=== PATIENT | male | born 2005 | race Caucasian/White ===

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

== ENCOUNTER → 2024-01-21 11:09 | Outpatient (BNVA) | payer SELFPAY | PROVIDERS: PCP Pediatrics | DX: R76.11 Nonspecific reaction to tuberculin skin test without active tuberculosis (principal) ==

== ENCOUNTER 2024-07-13 12:38 | Outpatient (REF) | payer MEDICAID, SELFPAY ==
[2024-07-13 13:34] LABS: MANUAL DIFF FLAG NO
[2024-07-13 13:44] LABS: Basophils Percent Auto 0.4 % (0-2); Eosinophils Percent Auto 0.8 % (0-4); Hematocrit 46.6 % (42.0-52.0); Hemoglobin 15.6 g/dl (14.0-18.0); Imm Gran Abs Auto 0.01 X10*3/uL (0.00-0.03); Imm Gran Pct Auto 0.2 % (0.0-0.4); Lymphocytes Absolute Auto 1.2 X10*3/uL (1.2-4.9); Mean Corpuscular HGB Conc 33.5 g/dl (31.0-36.0); Mean Corpuscular Hemoglobin 28.8 pg (27.0-33.0); Mean Corpuscular Volume 86.1 fL (80.0-98.0); Mean Platelet Volume 9.4 fL (9.4-12.4); Monocytes Absolute Auto 0.5 X10*3/uL (0.1-1.2); Monocytes Percent Auto 10.2 % (2-11); Neutrophils Absolute Auto 3.2 x10*3/uL (2.0-8.3); Neutrophils Percent Auto 64.4 % (45-73); Platelet Count 296 X10*3/uL (160-400); Red Blood Count 5.41 X10*6/uL (4.60-5.80); Red Cell Distribution Width 12.3 % (11.0-16.0)
[2024-07-13 14:03] LABS: Alanine Aminotransferase 25 U/L (0-40); Albumin Level 4.3 g/dL (3.5-5.0); Alkaline Phosphatase 101 U/L (39-117); Anion Gap 12 (12-20); Aspartate Amino Transferase 17 U/L (5-37); Bilirubin Total 0.6 mg/dL (0.0-1.0); Blood Urea Nitrogen 12 mg/dL (9-16); Carbon Dioxide 28 mmol/L (22-29); Chloride 103 mmol/L (96-108); Cholesterol 129 mg/dL (<200); Estimated Glomerular Filt Rate > 60; Glucose Random 97 mg/dL (60-115); HDL Cholesterol 27 mg/dL (>40); LDL Cholesterol Calculated 85 mg/dL (<100); Potassium 4.2 mmol/L (3.3-5.1); Sodium 139 mmol/L (135-145); Total Protein 8.6 g/dL (6.5-8.0); Triglycerides 87 mg/dL (<150)
[2024-07-14 08:01] LABS: ~HepC Num1 0.69 S/CO (0.00-0.79); ~Hepatitis C Antibody Nonreactive (Nonreactive)
[2024-07-14 13:13] LABS: RPR Rapid Plasma Reagin REACTIVE (NON-REACTIVE)
[2024-07-16 17:04] LABS: TS Negative Control Passed; TS Panel A 0; TS Panel B 0; TS Positive Control Passed; TSpotTB Negative (Negative)
[2024-07-17 17:49] LABS: HIV RNA PCR Qn Copies Not Detected Copies/mL; HIV RNA PCR Qn Log Copies Not Detected Log cps/mL
== END 2024-07-13 12:39 | disposition home or self-care (01) ==
LOC: HO.HHCL 12:38
PROVIDERS: Pediatrics; Visit Provider Nurse Practitioner Family
DX: Z00.00 Encounter for general adult medical examination without abnormal findings (principal); Z11.1 Encounter for screening for respiratory tuberculosis; Z11.4 Encounter for screening for human immunodeficiency virus [HIV]; Z13.6 Encounter for screening for cardiovascular disorders
CPT/HCPCS: 36415; 80053; 80061; 85025; 86481; 86592; 86593; 86803; 87536; 87900

== ENCOUNTER 2024-07-14 10:15 | Outpatient (REF) | payer MEDICAID, SELFPAY ==
[2024-07-14 11:48] LABS: MANUAL DIFF FLAG NO
[2024-07-14 11:53] LABS: Basophils Percent Auto 0.3 % (0-2); Eosinophils Percent Auto 0.6 % (0-4); Hematocrit 43.4 % (42.0-52.0); Hemoglobin 14.6 g/dl (14.0-18.0); Imm Gran Abs Auto 0.02 X10*3/uL (0.00-0.03); Imm Gran Pct Auto 0.3 % (0.0-0.4); Lymphocytes Absolute Auto 1.1 X10*3/uL (1.2-4.9); Lymphocytes Percent Auto 14.9 % (20-40); Mean Corpuscular HGB Conc 33.6 g/dl (31.0-36.0); Mean Corpuscular Volume 86.1 fL (80.0-98.0); Mean Platelet Volume 9.2 fL (9.4-12.4); Monocytes Absolute Auto 0.5 X10*3/uL (0.1-1.2); Monocytes Percent Auto 6.7 % (2-11); Neutrophils Absolute Auto 5.5 x10*3/uL (2.0-8.3); Neutrophils Percent Auto 77.2 % (45-73); Platelet Count 280 X10*3/uL (160-400); Red Blood Count 5.04 X10*6/uL (4.60-5.80); Red Cell Distribution Width 12.2 % (11.0-16.0); White Blood Count 7.1 X10*3/uL (4.8-10.8)
[2024-07-14 12:58] LABS: HIV AB/AG Nonreactive (Nonreactive); HIV Num 1 0.12 S/CO (0.00-0.99)
[2024-07-14 12:59] LABS: Syphilis Screen Reactive (Nonreactive)
[2024-07-17 09:13] LABS: EBV-NA IgG Index >600.00 U/mL; EBV-VCA IgG Ab >750.00 U/mL; EBV-VCA IgM Ab <36.00 U/mL
[2024-07-18 09:37] LABS: T.Pallidum Particle Agg Test Reactive (Nonreactive)
[2024-07-21 06:58] LABS: C. Trachomatis RNA TMA, Throat NOT DETECTED; N. gonorrhoeae RNA TMA, Throat NOT DETECTED
== END 2024-07-14 10:16 | disposition home or self-care (01) ==
LOC: HO.HHCL 10:15
PROVIDERS: Visit Provider Family Medicine
DX: R59.0 Localized enlarged lymph nodes (principal)
CPT/HCPCS: 36415; 85025; 86592; 86611; 86664; 86665; 86780; 87389; 87491; 87591

== ENCOUNTER 2024-08-02 16:41 | Outpatient (REF) | payer MEDICAID, SELFPAY ==
[2024-08-03 05:43] LABS: CT PCR NOT DETECTED (Not Detect.); NG PCR NOT DETECTED (Not Detect.)
[2024-08-07 04:42] LABS: N. gonorrhoeae RNA TMA, Throat NOT DETECTED
== END 2024-08-02 16:42 | disposition home or self-care (01) ==
LOC: HO.HHCLNP 16:41
PROVIDERS: Visit Provider Pediatrics
DX: Z00.00 Encounter for general adult medical examination without abnormal findings (principal); Z11.3 Encounter for screening for infections with a predominantly sexual mode of transmission
CPT/HCPCS: 36415; 87491; 87591

== ENCOUNTER 2024-11-08 12:01 | Outpatient (REF) | payer MEDICAID, SELFPAY ==
--- OUTSIDE RECORDS SUMMARY | 2024-11-08 12:04 | XMS_ITS ---
Author Organization [facility] Address [address] [place] [phone] Care Team Providers Care Product Design Manager Name Role Phone CINTIA IWONA Unavailable [phone] Allergies Allergen (clinical drug ingredient) Drug/Non Drug Allergy documented on EMR Reaction Allergy Type Onset Date Status Cat dander cats (uncoded) Unknown Allergy Acti ve REASON FOR VISIT Counseling/Testing Social History Sex Assigned At : Social History Observation Description Sex Assigned At Male Vital Signs Blood pressure systolic 142 mm Hg 10/01/20 24 Blood pressure diastolic 74 mm Hg 024 Height 5'9 in 10/01/2024 Weight 130 lbs 10/01/2024 BMI 19.2 kg/m2 10/01/2024 Encounters Encounter Location Date Provider Diagnosis [address] [id number] 10/01/2024 IWONA CHAMBERLAIN Encounter for scre ening for infections with a predominantly sexual mode of transmission Z11.3 ; Counseling, unspecified Z71.9 and Other problems related to lifestyle Z72.89 Assessments Encounter Date Diagnosis (ICD Code) Assessment Notes Treatment Notes Treatment Clinical Notes Section Notes 10/01/2024 Encounter for screening for infections with a predominantly sexual mode of transmission (ICD-10 - Z11.3) Long discussion regarding HSV concerns, HSV screening options and limitations of screening. Clt has opted to defer screening today. From description and photos I don't have high suspicion for HSV. Advised clt that if any symptoms return that they are concerned about possibly being HSV return with active symptoms for a PCR swab. Clt in agreement with plan Spent 15 minutes doing the following: Chart Prep Obtaining/rev iewing history Performing medically necessary exam Counseling/Co ordination of Care Documenting the visit Educating the patient New Patient: 29929 15 Minutes 10/01/2024 Counseling, unspecified (ICD-10 - Z71.9) Spent 15 minutes doing the following: Chart Prep Obtaining/rev iewing history Performing medically necessary exam Counseling/Co ordination of Care Documenting the visit Educating the patient New Patient: 24050 15 Minutes 10/01/2024 Other problems related to lifestyle (ICD-10 - Z72.89) Spent 15 minutes doing the following: Chart Prep Obtaining/rev iewing history Performing medically necessary exam Counseling/Co ordination of Care Documenting the visit Educating the patient New Patient: 16276 15 Minutes Plan Of Treatment Treatment Notes Assessment Notes Encounter for screening for infections with a predominantly sexual mode of transmission Long discussion regarding HSV concerns, HSV screening options and limitations of screening. Clt has opted to defer screening today. From description and photos I don't have high suspicion for HSV. Advised clt that if any symptoms return that they are concerned about possibly being HSV return with active symptoms for a PCR swab. Clt in agreement with plan Next Appt Details Follow Up: prn, Reason: Progress Notes * Angel RANGEL:0 2005 (19 yo M)Acc No.[id number]:10/01/2024 Progress Notes Patient:?Clint RANGEL Provider:ANN CHAMBERLAIN :2005???Age:19 Y???Sex:Male Emanuel e:10/01/2024 Address:[address] [place], [place] [id number] Subjective: * Chief Complaints: * ???Counseling/Testing * HPI: ???Visit Narrative:? Clt had a bump on the inner side of the lip about 2-3 weeks ago. Clt popped it and got another bump. Never had an open sore. Clt reports they sometimes bite their lip. Wondering if they should get HSV screening. No known exposures. Had other STI screening earlier this week and has another fu in October. ?Reason for the visit:?hsv testing?.?Current form of control:?condoms sometimes?.?Presenting Symptoms:?had bump on lip?.?Last date of UPI:?05/01.?Other Notes for the Clinician:?clt was seen in [facility], and got tested. clt was told to come here for hsv testing. clt tested postive for rpr and got their tx on the end of june. clt states they got one dose but went back for a second one just in case?.? * ROS:?General/Constitutional:?Comments?See HPI for details.? * Medical History:? * Surgical History:?Denies Pas t Surgical History * Hospitalization/Major Diagno stic Procedure:?Denies Past Hospitalization * Family History:?No Family Hi story documented..? * Social History:?Food Access:?Food Access?The Client's current access to food is?Secure Food Access ???Housing:?Housing?The client's current living situation is:?stable housing ???Reproductive Life Plan:?Reproductive Life Plan?Do you want to have children??Not sure ???Sexual History:?Sexual History?Sexual History Reviewed:?Partners, Practices, Protection/Past STIs, Prevention of ?Currently sexually active??Yes ?Sexually active with:?Men ?Number of male partners?1 ?Your sexual activities include:?anal intercourse, oral intercourse ?Date of last unprotected intercourse:?05/01/2024 ?Number of partners in past 3 months:?2 ?Number of partners in past year:?5 ???HIV Risk Assessment:?Additional Questions?Is an HIV Risk Assessment being conducted??Yes ?Have you been tested for HIV before??Yes ???Relationships:?Relationships?Has the client experienced any of the following:?Client has never experienced harmful relationships ???Human Trafficking:?Human Trafficking?Experienced:?No ???Tobacco Use:?Tobacco Use?Do you/have you used tobacco??No ?Tobacco Smoking Status?Never smoker ???Drugs/Alcohol:?Drug/Alcohol Use?Do you or have you used drugs??No ?Do you or have you used alcohol??Yes, currently ???Counseling Provided:?Counseling Provided?Please indicate the length of time, in minutes, that counseling was provided.?8 ?Counseling Was Provided By:?giselle * Medications:?None * Allergies:?cole[Allergies Verified] Objective: * Vitals:?BP:142/74mm Hg, Ht: 5'9 , Wt:130lbs, BMI:19.2Index, Ht-cm: 175.26, Wt- k.97. * Examination: ???General Examination: ?GENERAL APPEARANCE:?in no acute distress.?PSYCH:? alert, oriented.? Assessment: * Assessment: 1.?Encounter for screening f or infections with a predominantly sexual mode of transmission - Z11.3 (Primary)???2.?Counseling, unspecified - Z71.9???3.?Other problems related to lifestyle - Z72.89??? Spent 15 minutes doing the f ollowing: Chart Prep Obtaining/reviewing history Performing medically necessary exam Counseling/Coordination of Care Documenting the visit Educating the patient New Patient: 06483 15 Minutes Plan: * Treatment: * Procedure Codes:? * Follow Up:?prn * Billing Information: * Visit Code:? 59808 New-Straightforward (IN USE). * Procedure Codes:? * Sign off status: Completed true * Provider:ANN CHAMBERLAIN Date:?10/01/2024 Generated for Yao uriostegui/Mckenna/Araitting on:?11/08/2024 08:52 AM EST History and Physical Notes * HPI (History of Present Illness) Category Sub-Category Detail Notes Category Not es Visit Narrative Reason for the visit: hsv testing Current form of control: condoms s ometimes Presenting Symptoms: had bump on lip Other Notes for the Clinician: clt was s een in [facility], and got tested. clt was told to come here for hsv testing. clt tested postive for rpr and got their tx on the end of june. clt states they got one dose but went back for a second one just in case Last date of UPI: 05/01 Examination Category Sub-Category Detail Notes Category Not es General Examination GENERAL APPEARANCE: in no acute di stress PSYCH: alert, oriented
--- OUTSIDE RECORDS SUMMARY | 2024-11-08 12:04 | XMS_ITS | Patient Health Record ---
Author Organization [facility] Address [address] [place] [id number] Care Team Providers Care Teacher Aide Clerical Name Role Phone IWONA CHAMBERLAIN Unavailable [phone] Allergies Allergen (clinical drug ingredient) Drug/Non Drug Allergy documented on EMR Reaction Allergy Type Onset Date Status Cat dander cats (uncoded) Unknown Allergy Acti ve Reason For Referral No Information Social History Sex Assigned At : Social History Observation Description Sex Assigned At Male Vital Signs Blood pressure diastolic 74 mm Hg 10/01/2024 Height 5'9 in 10/01/2024 Blood pressure systolic 142 mm Hg 10/01/2024 Weight 130 lbs 10/01/2024 BMI 19.2 kg/m2 10/01/2024 Encounters Encounter Location Date Provider Diagnosis [address] [id number] 10/01/2024 IWONA CHAMBERLAIN Encounter for scre ening [...] the visit Educating the patient New Patient: 05454 15 Minutes 10/01/2024 Counseling, unspecified (ICD-10 - Z71.9) Spent 15 minutes doing the following: Chart Prep Obtaining/rev iewing history Performing medically necessary exam Counseling/Co ordination of Care Documenting the visit Educating the patient New Patient: 70595 15 Minutes 10/01/2024 Other problems related to lifestyle (ICD-10 - Z72.89) Spent 15 minutes doing the following: Chart Prep Obtaining/rev iewing history Performing medically necessary exam Counseling/Co ordination of Care Documenting the visit Educating the patient New Patient: 88819 15 Minutes Plan Of Treatment No Information Insurance Providers Payer Name Payer Address Payer Phone Subscriber Number Group Number Insured Name Patient Relationship to Insured Coverage Start Date Coverage End Date [place] ATT CLAIMS [address] [place] [id number] Duc Rangel Self - patient is the insured Medical (General) History Medical History History ICD Code syphilis, 06/2024 asthma
[2024-11-08 14:30] LABS: Syphilis Screen Reactive (Nonreactive)
[2024-11-13 07:18] LABS: C. Trachomatis RNA TMA, Throat NOT DETECTED; N. gonorrhoeae RNA TMA, Throat NOT DETECTED
[2024-11-14 13:31] LABS: RPR Quantitative Reactive 1:4 (Nonreactive); T.Pallidum Particle Agg Test Reactive (Nonreactive)
== END 2024-11-08 12:02 | disposition home or self-care (01) ==
LOC: HO.HHCL 12:01
PROVIDERS: Visit Provider Family Medicine
DX: Z11.3 Encounter for screening for infections with a predominantly sexual mode of transmission (principal)
CPT/HCPCS: 36415; 86592; 86780; 87491; 87591

== ENCOUNTER 2025-01-25 16:32 | Outpatient (REF) | payer MEDICAID, SELFPAY ==
--- OUTSIDE RECORDS SUMMARY | 2025-01-25 20:16 | XMS_ITS | Encounter Summary ---
Author Organization [employer] Address [address] [place] [address] [address] [place] [address] Care Team Providers Care Nursing Teacher Name Role Phone Beckie Prakash MD Primary Care Provider [phone] Encounter Details Date Type Department Care Team ([facility] st Contact Info) Description 01/25/2025 Telephone [facility] MED[facility]INE [address] [place] [address] Beckie Prakash MD [address] [place] [address] Social History Tobacco Use Types Packs/Day Years Used Date Smoking Tobacco: Never Passive Smoke Exposure: Never Smokeless Tobacco: Never Comments:vape Alcohol Use Standard Drinks/Week Comments Yes 0 (1 standard drink = 0.6 oz pur e alcohol) social Depression Answer Date Recorded Patient Health Questionnaire-9 Score 5 06/07/2024 Patient Health Questionnaire-9 Score 5 06/07/2024 Last PHQ-9: Questionnaire Data Not on file 0 06/07/2024 Housing Stability Answer Date Recorded What is your housing situation today? I have layla yeh 05/31/[address] you li ve. Do you have problems with any of the following? None of the above 05/31/2024 Food Insecurity Answer Date Recorded Within the past 12 months, y ou worried that your food would run out before you got money to buy more: Never True 05/31/2024 Within the past 12 months,th e food you bought just didn't last and you didn't have enough money to get more: Never True 06/2024 Transportation Answer Date Recorded In the past 12 months, has l ack of transportation kept you from medical appts, meetings, work or from getting things needed for daily living? No 09/29/2023 Utilities Answer Date Recorded In the past 12 months, has t he electric, gas, oil or water company threatened to shut off services in your home? No 09/29/2023 Depression Answer Date Recorded Patient Health Questionnaire-2 Score 3 06/07/2024 Internet Access Answer Date Recorded Internet Access Q1 Yes 07/26/2024 Internet Access Q2 Not on file 07/26/2024 Sex and Gender Information Value Date Recorded Sex Assigned at Male 09/23/2022 10:20 AM EDT Legal Sex Male 10:20 AM EDT Gender Identity Male 09/23/2022 10:20 AM EDT Sexual Orientation Straight 09/23/2022 10 :20 AM EDT documented as of this encounter Miscellaneous Notes * Telephone Encounter - Darcie Corey RN - 01/25/2025 9:43 AM EST Called pt. He states that he has been having a sore throat x 2 days. No fever. Pt. States he lookedin his throat and he see's an ulcer. Pt. Has not taken anything for pain but, has been doing H202 washes in throat with no relief. Pt. Stating he had some testing done yesterday he states in the back parking lot at [facility] but, I do not see any testing orders or results. Could possibly be from CRS? Protocol Used: Sore Throat (Adult) Protocol-Based Disposition: See in Office or Video Visit Today-at 215pm on Green team with Dr. Handy. Video visit not offered Positive Triage Questions: * Severe sore throat pain * Patient wants to be seen * Sore throat is main symptom and persists > 48 hours * All higher-acuity triage questions were negative Care Advice Discussed: * Sore Throat * Soft Diet * Drink Plenty of Liquids * Pain and Fever Medicines * Expected Course documented in this encounter Plan of Treatment Upcoming Encounters Date Type Department Care Team (Late st Contact Info) Description 02/28/2025 11:30 AM EDT Office Visit [facility] MEDICINE [address] [place] [id number] Beckie Prakash MD [address] [place] [phone] documented as of this encounter Visit Diagnoses Not on filedocumented in this encounter Additional Health Concerns Assessment Noted Time PHQ-9 Depression Total Score: 5 06/07/20 24 10:25 AM EDT documented as of this encounter Care Teams Nursing Teacher Relationship Specialty Start Date End Date Beckie Prakash MD [address] [place] [address] PCP - General Family Medicine 07/20/24 documented as of this encounter
--- OUTSIDE RECORDS SUMMARY | 2025-01-25 20:16 | XMS_ITS ---
Author Organization [facility] Address [address] [place] [phone] Care Team Providers Care Supervisor Felting Name Role Phone CINTIA IWONA Unavailable [phone] Allergies Allergen (clinical drug ingredient) Drug/Non Drug [...] 10/01/2024 Encounters Encounter Location Date Provider Diagnosis [address] [id number] 10/01/2024 IWONA CHAMBERLAIN Encounter for scre ening [...] the visit Educating the patient New Patient: 14735 15 Minutes 10/01/2024 Counseling, unspecified (ICD-10 - Z71.9) Spent 15 minutes doing the following: Chart Prep Obtaining/rev iewing history Performing medically necessary exam Counseling/Co ordination of Care Documenting the visit Educating the patient New Patient: 18165 15 Minutes 10/01/2024 Other problems related to lifestyle (ICD-10 - Z72.89) Spent 15 minutes doing the following: Chart Prep Obtaining/rev iewing history Performing medically necessary exam Counseling/Co ordination of Care Documenting the visit Educating the patient New Patient: 30769 15 Minutes Plan Of Treatment Treatment Notes [...] * Angel RANGEL:0 2005 (19 yo M)Acc No.[id number]:10/01/2024 Progress Notes Patient:?Clint RNAGEL Provider:ANN CHAMBERLAIN :2005???Age:19 Y???Sex:Male Emanuel e:10/01/2024 Address:[address] [place], [place] [id number] Subjective: * Chief Complaints: * ???Counseling/Testing * [...] Notes for the Clinician:?clt was seen in [facility], and got tested. clt was told to [...] the visit Educating the patient New Patient: 79212 15 Minutes Plan: * Treatment: * Procedure Codes:? * Follow Up:?prn * Billing Information: * Visit Code:? 41744 New-Straightforward (IN USE). * Procedure Codes:? * Sign off status: Completed true * Provider:ANN CHAMBERLAIN Date:?10/01/2024 Generated for Yao uriostegui/Mckenna/Araitting on:?01/25/2025 10:04 AM EST History and Physical Notes * HPI (History of Present Illness) Category Sub-Category Detail Notes Category Not es Visit Narrative Reason for the visit: hsv testing Current form of control: condoms s ometimes Presenting Symptoms: had bump on lip Other Notes for the Clinician: clt was s een in [facility], and got tested. clt was told to [...]
--- OUTSIDE RECORDS SUMMARY | 2025-01-25 20:16 | XMS_ITS | Encounter Summary ---
Author Organization [employer] Address [address] [place] [address] 7 [place] [address] Care Team Providers Care Waste Machine Tender Name Role Phone Beckie Prakash MD Primary Care Provider [phone]- [phone] Encounter Details Date Type Department Care Team (Late st Contact Info) Description 01/25/2025 2:15 PM EST Office Visit [facility] [address] [place] [address] Brianna Handy MD [address] [place] [address] Throat ulcer (Primary Dx); Sore throat Social History Tobacco Use Types Packs/Day Years [...] AM EDT documented as of this encounter Last Filed Vital Signs Vital Sign Reading Time Taken Comments Blood Pressure 125/81 01/25/2025 2:33 PM EST Pulse 88 01/25/2025 2:33 PM EST Temperature 36.4 ??C (97.5 ??F) 01/25/2025 2:33 PM ES T Respiratory Rate 18 01/25/2025 2:33 PM EST Oxygen Saturation 96% 01/25/2025 2:33 PM EST Inhaled Oxygen Concentration - - Weight 61.2 kg (135 lb) 01/25/2025 2:33 PM EST Height 172.7 cm (5' 8 ) 01/25/2025 2:33 PM EST Body Mass Index 20.53 01/25/2025 2:33 PM EST documented in this encounter Plan of Treatment Upcoming Encounters Date Type Department Care Team (Late st Contact Info) Description 02/28/2025 11:30 AM EDT Office Visit [facility] [address] [place] [address] Beckie Prakash MD [address] [place] [address] Scheduled Orders Name Type Priority Associated Diagnoses Orde r Schedule Herpes Simplex Virus Culture with Reflex Typing Microbiology Routine Throat ulcer Expected: 01/25/2025, Expires: 01/25/2026 Chlamydia/N. Gonorrhoeae RNA, TMA, Throat Microbiology Routine Throat ulcer Expected: 01/25/2025 (Approximate), Expires: 01/25/2026 documented as of this encounter Procedures Procedure Name Priority Date/Time Associated Diagnosis Comments POCT COVID-19 AG LONG ID NOW Routine 01/25/2025 2:49 PM EST Sore throat POC LONG ID NOW STREP A Routine 01/25/2025 2:48 PM EST Sore throat documented in this encounter Results * POCT Rapid Covid-19 LONG ID NOW (01/25/2025 2:49 PM EST) Pathologist [facility] Coronavirus Antigen PCR Negative Negative, Indeterminate, None Detected, Invalid, Specimen unsatisfactory for evaluation, Weakly Positive QC Media Lot # [id number] Lot# Expiration Date 3,026 Swab 01/25/2025 2:49 PM EST Brianna Handy MD POINT OF CARE TEST ENTER/EDIT OR DERABLES Final Result * POCT Rapid Strep A LONG ID NOW (01/25/2025 2:48 PM EST) Pathologist [facility] Rapid Strep A Screen Negative Negative, None Detected QC Media Lot # [id number] Lot# Expiration Date ,026 Swab 01/25/2025 2:48 PM EST us Brianna Handy MD POINT OF CARE TEST ENTER/EDIT OR DERABLES Final Result documented in this encounter Visit Diagnoses Diagnosis Throat ulcer- Primary Other diseases of larynx Sore throat Acute pharyngitis documented in this encounter Additional Health Concerns Assessment Noted Time PHQ-9 Depression Total Score: 5 06/07/20 24 10:25 AM EDT documented as of this encounter Care Teams Waste Machine Tender Relationship Specialty Start Date End Date Beckie Prakash MD [address] [place] [id number] PCP - General Family Medicine 07/20/24 documented as of this encounter
--- OUTSIDE RECORDS SUMMARY | 2025-01-25 20:16 | XMS_ITS | Patient Health Record ---
Author Organization [facility] Address [address] [place] [phone] Care Team Providers Care Gl[employer]ier [employer] Furniture Name Role Phone IWONA CHAMBERLAIN Unavailable [phone] Allergies Allergen (clinical drug ingredient) Drug/Non Drug [...] 10/01/2024 Encounters Encounter Location Date Provider Diagnosis [address] [id number] 10/01/2024 IWONA CHAMBERLAIN Encounter for scre ening [...] the visit Educating the patient New Patient: 76647 15 Minutes 10/01/2024 Counseling, unspecified (ICD-10 - Z71.9) Spent 15 minutes doing the following: Chart Prep Obtaining/rev iewing history Performing medically necessary exam Counseling/Co ordination of Care Documenting the visit Educating the patient New Patient: 77602 15 Minutes 10/01/2024 Other problems related to lifestyle (ICD-10 - Z72.89) Spent 15 minutes doing the following: Chart Prep Obtaining/rev iewing history Performing medically necessary exam Counseling/Co ordination of Care Documenting the visit Educating the patient New Patient: 98520 15 Minutes Plan Of Treatment No Information Insurance Providers Payer Name Payer Address Payer Phone Subscriber Number Group Number Insured Name Patient Relationship to Insured Coverage Start Date Coverage End Date [place] ATT CLAIMS [address] [place] [id number] Duc Rangel Self - patient is the insured Medical (General) History Medical History History ICD Code syphilis, 06/2024 asthma
--- OUTSIDE RECORDS SUMMARY | 2025-01-25 20:16 | XMS_ITS | Encounter Summary ---
Author Organization [employer] Address [address] [place] [address] [address] [place] [address] Care Team Providers Care Bread Oven Operator Name Role Phone Anabela Jalloh DO Primary Care Provider [phone] Beckie Prakash MD Primary Care Provider [phone]- [phone] Reason for Visit * Reason Onset Date Comments Lab Orders 01/21/2024 Encounter Details Date Type Department Care Team (Late st Contact Info) Description 01/21/2024 Telephone [facility] MEDICINE [address] [place] [address] Anabela Jalloh DO [address] [place] [address] Lab Orders Social History Tobacco Use Types Packs/Day Years Used Date Smoking Tobacco: Former Cigarettes Smokeless Tobacco: Current Comments:vape Alcohol Use Standard Drinks/Week Comments Never 0 (1 standard drink = 0.6 oz pur e alcohol) Depression Answer Date Recorded Patient Health Questionnaire-9 Score 8 06/11/2023 Housing Stability Answer Date Recorded What is your housing situation today? I do not have housing (Staying with others, in a hotel, in a intermediate, living outside on the street, on a beach, in a car, or in a park 08/31/[address] you li ve. Do you have problems with any of the following? None of the above 08/31/2023 Food Insecurity Answer Date Recorded Within the past 12 months, y ou worried that your food would run out before you got money to buy more: Sometimes True 2022 Within the past 12 months,th e food you bought just didn't last and you didn't have enough money to get more: Sometimes True 09/29/2023 Transportation Answer Date Recorded In the past [...] Answer Date Recorded Patient Health Questionnaire-2 Score 1 06/11/2023 Sex and Gender Information Value Date Recorded Sex Assigned at Male 09/23/2022 10:20 AM EDT Legal Sex Male 10:20 AM EDT Gender Identity Male 09/23/2022 10:20 AM EDT Sexual Orientation Straight 09/23/2022 10 :20 AM EDT documented as of this encounter Miscellaneous Notes * Telephone Encounter - Ha Wright - 01/21/2024 9:54 AM EST Tc from mom for pt needing TB testing for school. Mom stated school needs it done before Friday. Please contact mom at [phone]. documented in this encounter Plan of Treatment Upcoming Encounters Date Type Department Care Team (Late st Contact Info) Description 02/28/2025 11:30 AM EDT Office Visit [facility] [address] [place] [address] Beckie Prakash MD [address] [place] [address] documented as of this encounter Visit Diagnoses Not on filedocumented in this encounter Additional Health Concerns Assessment Noted Time PHQ-9 Depression Total Score: 8 06/11/20 23 6:23 PM EDT documented as of this encounter Care Teams Bread Oven Operator Relationship Specialty Start Date End Date Anabela Jalloh DO [address] [place] [address] PCP - General Pediatrics 10/11/14 07/19/24 Beckie Prakash MD [address] [place] [id number] PCP - General Family Medicine 07/20/24 documented as of this encounter
--- OUTSIDE RECORDS SUMMARY | 2025-01-25 20:16 | XMS_ITS | Encounter Summary ---
Author Organization [employer] Address [address] [facility] 7[address] [place] [address] Care Team Providers Care Mailer Name Role Phone Anabela Jalloh DO Primary Care Provider [phone] Beckie Prakash MD Primary Care Provider [phone] Encounter Details Date Type Department Care Team ([facility] st Contact Info) Description 07/14/2024 Orders Only [facility] [address] [place], [place] [phone] Beckie Prakash MD [address] [place], [place] [phone] Social History Tobacco Use Types Packs/Day Years Used Date Smoking Tobacco: Former Cigarettes Smokeless Tobacco: Current Comments:vape Alcohol Use Standard Drinks/Week Comments Yes [...] Recorded Patient Health Questionnaire-2 Score 3 06/07/2024 Sex and Gender Information Value Date Recorded Sex Assigned at Male 09/23/2022 10:20 AM EDT Legal Sex Male 10:20 AM EDT Gender Identity Male 09/23/2022 10:20 AM EDT Sexual Orientation Straight 09/23/2022 10 :20 AM EDT documented as of this encounter Plan of Treatment Upcoming Encounters Date Type Department Care Team (Late st Contact Info) Description 02/28/2025 11:30 AM EDT Office Visit [facility] [address] [place] [address] [phone] Beckie Prakash MD [address] [place], [place] [phone] documented as of this encounter Procedures Procedure Name Priority Date/Time Associated Diagnosis Comments CONFIRMATORY SYPHILIS PROFILE Routine 11/08/2024 12:06 PM EST CHLAMYDIA/N. GONORRHOEAE RNA, TMA, THROAT Routine 11/08/2024 12:00 AM EST CONFIRMATORY SYPHILIS PROFILE Routine 07/14/2024 10:44 AM EDT [facility] 07/14/2024 10:44 AM EDT T-SPOT(R).TB Routine 07/13/2024 12:43 PM EDT documented in this encounter Results * (ABNORMAL) Confirmatory Syphilis Profile (11/08/2024 12:06 PM EST) Rapid Plasma Reagin, Quant Reactive 1:4(A) Nonreactive [facility] Treponema pallidum Antibody, Particle Agglutination Reactive(A) Nonreactive [facility] Comment:Testing performed at : [address] [address] 11/08/2024 12:0 6 PM EST 11/08/2024 2:30 PM EST Beckie Prakash MD LAB BLOOD ORDERABLES Final Result Performing Organization Address [facility] Co de Phone Number [facility] [address] [place] [phone] * Chlamydia/N. Gonorrhoeae RNA, TMA, Throat (11/08/2024 12:00 AM EST) C. Trachomatis RNA TMA, Throat NOT DETECTED [facility] N. gonorrhoeae RNA TMA, Throat NOT DETECTED [facility] Comment:REFERENCE RANGE: NOT DETECTEDMethodology: Window Cleaner Mediated Amplification (TMA) to detect RNA.The analytical performance characteristics of this assayhave been determined by [employer]. The modificationshave not been cleared or approved by the FDA. This assay hasbeen validated pursuant to the CLIA regulations and is usedfor clinical purposes.For additional information, please refer tohttps://education.SealedMedia/faq/PNW863(This link is being provided for informational/educationalpurposes only.)THIS TEST WAS PERFORMED AT:[employer] [id number] [place] [address]OFDOHYAHAIRA BRANTLEY MD,PHD,ANDREW 11/08/2024 11/08/2024 Beckie Prakash MD LAB MICROBIOLOGY - GENERAL ORDERABLES Final Result Performing Organization Address [facility]/ZIP Co de Phone Number [facility] [address] [place] [phone] * Other Reference Test - Misc (07/14/2024 10:44 AM EDT) 07/14/2024 10:4 4 AM EDT 07/14/2024 11:36 AM EDT Narrative [facility] - 07/19/2024 11:06 AM EDT Bartonella Species Antibodies (IgG, IgM) with Reflex to Titers Beckie Prakash MD LAB BLOOD ORDERABLES Final Result Performing Organization Address [facility] Co de Phone Number [facility] [address] [place] [phone] * (ABNORMAL) Confirmatory Syphilis Profile (07/14/2024 10:44 AM EDT) [facility] Rapid Plasma Reagin, Quant Reactive 1:4096 Nonreactive [facility] Treponema pallidum Antibody, Particle Agglutination Reactive(A) Nonreactive [facility] Comment:Testing performed at : [address] [address] 07/14/2024 10:4 4 AM EDT 07/14/2024 1:00 PM EDT Beckie Prakash MD LAB BLOOD ORDERABLES Final Result Performing Organization Address [facility] Co de Phone Number [facility] [address] [place] [phone] * T-SPOT??.TB (07/13/2024 12:43 PM EDT) [facility] T Spot TB Negative Negative [facility] Comment:A negative test resu lt does not exclude the possibilityof exposure to or infection with Mycobacteriumtuberculosis (M. tuberculosis). Patients with recentexposure to TB infected individuals exhibiting anegative T-SPOT.TB result should be considered forretesting within 6 weeks or if other relevant clinicalsymptoms indicate. Results from T-SPOT.TB testing mustbe used in conjunction with each individual'sepidemiological history, current medical status,and results of other diagnostic evaluations.The T-SPOT.TB test is qualitative and results arereported as positive, borderline, or negative, giventhat the test controls perform as expected. In linewith the Centers for Disease Control and Prevention's2010 recommendation to report quantitative measurementsalongside the qualitative result, the laboratoryprovides spot counts for informational purposes only.The T-SPOT.TB test should not be interpreted as aquantitative test. TS PANEL A 0 [facility] TS PANEL B 0 [facility] Negative Control Passed [facility] Positive Control Passed [facility] Comment:For additional infor benny, please refer tohttp://education.SealedMedia/faq/ROT454(This link is being provided for informational/educational purposes only.)THIS TEST WAS PERFORMED AT:[employer]wiki/[employer] [id number] [place] [address]BJMLWSCNAT GRAHAM MD,PHD 07/13/2024 12:4 3 PM EDT 07/13/2024 1:31 PM EDT Anabela Jalloh DO LAB BLOOD ORDERABLES Final Re sult [facility] [address] [place] [address] [phone] documented in this encounter Visit Diagnoses Not on filedocumented in this encounter Additional Health Concerns Assessment Noted Time PHQ-9 Depression Total Score: 5 06/07/20 24 10:25 AM EDT documented as of this encounter Care Teams Mailer Relationship Specialty Start Date End Date Anabela Jalloh DO [address] [place] [address] PCP - General Pediatrics 10/11/14 07/19/24 Beckie Prakash MD [address] [place] [address] PCP - General Family Medicine 07/20/24 documented as of this encounter
--- OUTSIDE RECORDS SUMMARY | 2025-01-25 20:16 | XMS_ITS | Clinical Summary ---
Author Organization [employer] Address [address] [place] [address] 7[address] [place] [address] Care Team Providers Care Verify Rep Name Role Phone Beckie Prakash MD Primary Care Provider [phone] Allergies No known active allergies Medications ketotifen (Alaway) 0.025 % ophthalmic solutionIndicat ions:Linear morphea 1 drop each eye BID as needed for itchy eyes 10 mL 3 3 Active cetirizine (ZyrTEC) 10 MG tabletIndicatio ns:Linear morphea TAKE 1 TABLET BY MOUTH EVERY DAY 90 tablet 3 4 Active fluticasone (Flonase Allergy Relief) 50 MCG/ACT nasal sprayIndication s:Seasonal allergies Administer 1 spray into each nostril if needed each day for rhinitis. Shake gently. Before first use, prime pump. After use, clean tip and replace cap. 16 g 1 4 Active Active Problems Problem Noted Date Diagnosed Date Routine screening for STI (sexually transmitted infection) 11/08/2024 Overview (11/08/2024): - Ordered Chlamydia/N. Gonorrhoeae RNA, TMA, Throat 11/08/24 - Ordered Syphilis Screen 11/08/24 Assessment & Plan (11/08/2024 11:59 AM EST): - Ordered Chlamydia/N. Gonorrhoeae RNA, TMA, Throat 11/08/24 - Ordered Syphilis Screen 11/08/24 Seasonal allergies 11/08/2024 Overview (11/08/2024): - Prescribed fluticasone (Flonase Allergy Relief) 50 MCG/ACT nasal spray 11/08/24 Assessment & Plan (11/08/2024 11:59 AM EST): - Prescribed fluticasone (Flonase Allergy Relief) 50 MCG/ACT nasal spray 11/08/24 Other specified health status 08/13/2024 Overview (08/13/2024): -next comprehensive annual evaluation due after 08/13/25 -eye care facilitated [place] [facility] [place]. -dental home is [facility] [place]. -chris care proxy 08/13/24 Assessment & Plan (08/13/2024 10:46 AM EDT): -next comprehensive annual evaluation due after 08/13/25 -eye care facilitated [place] [facility] [place]. -dental home is [facility] [place]. -chris care proxy 08/13/24 Lymphadenopathy of left cervical region 07/14/20 Overview (08/13/2024): On physical exam on found 3cm by 1.5cm left cervical lymphadenopathy. No systemic symptoms, rash, or known allergen exposure. -ordered labs 07/14/24 -tested positive for Syphilis 07/14/24 -completed treatment, lymphadenopathy still present on exam today, likely reactive 08/13/24 -will f/u in 3 months. Assessment & Plan (08/13/2024 10:39 AM EDT): On physical exam on found 3cm by 1.5cm left cervical lymphadenopathy. No systemic symptoms, rash, or known allergen exposure. -ordered labs 07/14/24 -tested positive for Syphilis 07/14/24 -completed treatment, lymphadenopathy still present on exam today, likely reactive 08/13/24 -will f/u in 3 months. Assessment & Plan (07/14/2024 9:48 AM EDT): On physical exam found 3cm by 1.5cm left cervical lymphadenopathy. No systemic symptoms, rash, or known allergen exposure. 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 Essentially benign in nature. No treatment available. Rec continued monitoring with f/u prn in derm clinic with any further concerns. 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 History of syphilis Resolved Problems Problem Noted Date Diagnosed Date Resolved Date Acute COVID-19 06/07/2024 11/08/2024 Encounters Date Type Department Care Team Description 01/25/2025 2:15 PM EST Office Visit [facility] [address] [place] [phone] Brianna Handy MD Throat ulcer (Primary Dx); Sore throat 01/25/2025 Travel 01/25/[address] [address] Beckie Prakash MD 11/08/2024 11:00 AM EST Office Visit [address] [address] Beckie Prakash MD Routine screening for STI (sexually transmitted infection) (Primary Dx); Seasonal allergies 11/08/2024 Travel from Last 3 Months Immunizations Name Administration Dates Next Due DTaP 07/11/2008, 6,03/22/2005,01/11,2004 HPV 9-Valent 08/09/2016,09/29/2015,06/30/2015 Hep A, ped/adol, 2 dose 12/25/2012,09/14/2010 Hep B, Adolescent or Pediatric 10/22/2005,2004,2004 Hib (HbOC) 01/11/2005,2004 IPV 07/11/2008, 5,01/11/2005,10/29 Influenza Injectable Quadriv alant Preservative Free IIV4 MDCK 01/22/2024 Influenza injectable quadriv alent preservative free 02/04/2022,11/11/2020,01/19/2020,09/10,08/09/2016,09/29/2015,10/12/2014 Influenza, IIV3, injectable 11/01/2010, 0,10/17/2009 Influenza, Split (incl. pina fied surface antigen) 10/08/2013,12/25/2012 Influenza, seasonal, injecta ble, preservative free 08/13/2024 MMR 08/03/2009,07/30/2005 Meningococcal MCV4P ACYW-135 02/14/2021,06/30/20 15 Pfizer Covid-19 Vaccine 12+ 08/13/2024 Pneumococcal Conjugate PCV 7 12/18/2005,01/11/20 05,2004 Tdap 06/30/2015 Varicella 07/11/2008,07/30/2005 Family History Medical History Relation Name Comments Diabetes type II Mother Stroke Paternal Grandmother d Relation Name Status Comments Mother Paternal Grandmother Social History Tobacco Use Types Packs/Day Years [...] Orientation Straight 09/23/2022 10 :20 AM EDT Last Filed Vital Signs Vital Sign Reading [...] Mass Index 20.53 01/25/2025 2:33 PM EST Plan of Treatment Upcoming Encounters Date Type Department Care Team (Late st Contact Info) Description 02/28/2025 11:30 AM EDT Office Visit [facility] [address] [place] [phone] Beckie Prakash MD [address] [place] [address] Health Maintenance Due Date Last Done Comments Alcohol/Substance Use Screening 2016 Depression Screening 06/07/2025 06/07/2024, 06/07/20 SDOH Screening 06/07/2025 06/07/2024 DTaP/Tdap/Td Vaccines (7 - Td or Tdap) 06/30/2025 06/30/2015, 07/11/2008, 12/18/2005, Additional history exists Chlamydia and Gonorrhea Screening 11/08/2025 11/08/2024, 08/02/2024, 08/02/2024, Additional history exists Family Planning (PISQ) 11/08/2025 11/08/2024 Tobacco Screening 01/25/2026 01/25/2025 Zoster Vaccines (1 of 2) 2054 RSV Patients and Patients Aged 60 years or older (1 - 1-dose 75+ series) 2079 HIB Vaccines Aged Out 01/11/2005, 2004 No lo nger eligible based on patient's age to complete this topic Hepatitis B Vaccines Completed 10/22/2005, 01/11/2005, 2004 Pneumococcal Vaccine: Pediatrics (0 to 5 Years) and At-Risk Patients (6 to 49) Years) Aged Out 12/18/2005, 01/11/2005, 2004 No longer eligible based on patient's age to complete this topic IPV Vaccines Completed 07/11/2008, 09/25, 01/11/2005, Additional history exists Hepatitis A Vaccines Completed 12/25/2012, 09/14/20 10 HPV Vaccines Completed 08/09/2016, 110 04/2015, 06/30/2015 Meningococcal Vaccine Completed 02/14/2021, 015 Hepatitis C Screening Completed 07/13/2024 HIV Screening Completed 07/14/2024 COVID-19 Vaccine Completed 08/13/2024, , 06/15/2021 Influenza Vaccine Completed 08/13/2024, , 02/04/2022, Additional history exists RSV under 20 months Aged Out No longe r eligible based on patient's age to complete this topic Rotavirus Vaccines Aged Out No longer eligible based on patient's age to complete this topic Procedures Procedure Name Priority Date/Time Associated Diagnosis Comments POCT COVID-19 AG LONG ID NOW Routine 01/25/2025 2:49 PM EST Sore throat POC LONG ID NOW STREP A Routine 01/25/2025 2:48 PM EST Sore throat CONFIRMATORY SYPHILIS PROFILE Routine 11/08/2024 12:06 PM EST SYPHILIS SCREEN Routine 11/08/2024 12:06 PM EST Routine screening for STI (sexually transmitted infection) CHLAMYDIA/N. GONORRHOEAE RNA, TMA, THROAT Routine 11/08/2024 12:00 AM EST HIV 1/2 ANTIGEN/ANTIBODY, FOURTH GENERATION W/RFL Routine 07/14/2024 10:44 AM EDT Lymphadenopathy of left cervical region HEPATITIS C AB W/REFL TO HCV RNA, QN, PCR Routine 07/13/2024 12:43 PM EDT Routine general medical examination at a [facility] care facility from Last 3 Months or Most Recently Relevant to Health Maintenance Results * POCT Rapid Covid-19 LONG ID NOW (01/25/2025 2:49 PM EST) [facility] Coronavirus Antigen PCR Negative Negative, Indeterminate, None Detected, Invalid, Specimen unsatisfactory for evaluation, Weakly Positive QC Media Lot # [id number] Lot# Expiration Date Swab 01/25/2025 2:49 PM EST Brianna Handy MD POINT OF CARE TEST ENTER/EDIT OR DERABLES Final Result * POCT Rapid Strep A LONG ID NOW (01/25/2025 2:48 PM EST) [facility] Rapid Strep A Screen Negative Negative, None Detected QC Media Lot # [id number] Lot# Expiration Date Swab 01/25/2025 2:48 PM EST Brianna Handy MD POINT OF CARE TEST ENTER/EDIT OR DERABLES Final Result * (ABNORMAL) Confirmatory Syphilis Profile (11/08/2024 12:06 PM EST) Pathologist [facility] Rapid Plasma Reagin, Quant Reactive 1:4(A) Nonreactive [facility] Treponema pallidum Antibody, Particle Agglutination Reactive(A) Nonreactive [facility] Comment:Testing performed at : [address] [address] 11/08/2024 12:0 6 PM EST 11/08/2024 2:30 PM EST Beckie Prakash MD LAB BLOOD ORDERABLES Final Result Performing Organization Address City/[facility]/ZIP Co de Phone Number [facility] [address] [place] [phone] * (ABNORMAL) Syphilis Screen (11/08/2024 12:06 PM EST) Syphilis Screen Reactive( A) Nonreactive [facility] Comment:Reactive specimens a re sent to the [facility] Labfor confirmatory tests. Blood Venous blood specimen / Unknown 11/08/2024 12:06 PM EST 11/08/2024 1:23 PM EST Beckie Prakash MD LAB BLOOD ORDERABLES Final Result Performing Organization Address [facility]/ZIP Co de Phone Number [facility] [address] [place] [phone] * Chlamydia/N. Gonorrhoeae RNA, TMA, Throat (11/08/2024 12:00 AM EST) C. Trachomatis RNA TMA, Throat NOT DETECTED [facility] N. gonorrhoeae RNA TMA, Throat NOT DETECTED [facility] Comment:REFERENCE RANGE: NOT DETECTEDMethodology: Senior Etl Developer Mediated Amplification (TMA) to detect RNA.The analytical performance characteristics of this assayhave been determined by [employer]. The modificationshave not been cleared or approved by the FDA. This assay hasbeen validated pursuant to the CLIA regulations and is usedfor clinical purposes.For additional information, please refer tohttps://education.[employer]/faq/KFQ405(This link is being provided for informational/educationalpurposes only.)THIS TEST WAS PERFORMED AT:[employer] [id number] [place] [address]UHTCQYAHAIRA BRANTLEY MD,PHD,ANDREW 11/08/2024 11/08/2024 Beckie Prakash MD LAB MICROBIOLOGY - GENERAL ORDERABLES Final Result Performing Organization Address [facility] Co de Phone Number [facility] [address] [place] [address] [phone] * HIV-1/2 Antigen and Antibodies, Fourth Generation, with Reflexes (07/14/2024 10:44 AM EDT) HIV AB/AG Nonreactive Nonreactive [facility] Comment:HIV-1 p24 Ag and/or HIV-1/HIV-2 Ab not detected.A test result that is nonreactive does not exclude thepossibility of exposure to or infection with HIV-1 and/orHIV-2. Nonreactive results in this assay for individualswith prior exposure to HIV-1 and/or HIV-2 may be due toantigen and antibody levels that are below the limit ofdetection of this assay.The [employer] HIV Ag/Ab Combo assay result andsupplemental assay results should be interpreted inconjunction with the patient's clinical presentation,history and other laboratory results. If the results areinconsistent with clinical evidence, additional testing issuggested to confirm the result. Blood Venous blood specimen / Unknown 07/14/2024 10:44 AM EDT 07/14/2024 11:36 AM EDT Beckie Prakash MD LAB BLOOD ORDERABLES Final Result Performing Organization Address [facility] Co de Phone Number [facility] [address] [place] [address] [phone] * Hepatitis C Antibody with Reflex to HCV, RNA, Quantitative, Real-Time PCR (07/13/2024 12:43 PM EDT) Hepatitis C Antibody Nonreactive Nonreactive [facility] Comment:Antibodies to HCV no t detected; does not exclude early acuteHCV infection. Blood Venous blood specimen / Unknown 07/13/2024 12:43 PM EDT 07/13/2024 1:31 PM EDT us Consuelo He HE[facility]ER LAB BLOOD ORDERABLES Final Resu lt [facility] [address] [place] [address] [phone] from Last 3 Months or Most Recently Relevant to Health Maintenance Insurance [employer] C3 Advance Directives Documents on File Type Date Recorded Patient Block Hand Expl anation Advance Directives and Living Will 08/13/2024 Health Care Proxy 08/13/24 Care Teams Verify Rep Relationship Specialty Start Date End Date Dwain, MD Beckie [address] [place] [phone] PCP - General Family Medicine 07/20/24
--- OUTSIDE RECORDS SUMMARY | 2025-01-25 20:16 | XMS_ITS | Encounter Summary ---
Author Organization [employer] Address [address] [place] [address] [address] [place] [address] Care Team Providers Care Entomology Teacher Name Role Phone Beckie Prakash MD Primary Care Provider [phone] Encounter Details Date Type Department Care Team (Latest Contact Info) Description 01/25/2025 Travel Social History Tobacco Use Types Packs/Day Years [...] Description 02/28/2025 11:30 AM EDT Office Visit [facility] [address] [place] [address] Beckie Prakash MD [address] [place] [address] documented as of this encounter Visit Diagnoses Not on filedocumented in this encounter Additional Health Concerns Assessment Noted Time PHQ-9 Depression Total Score: 5 06/07/20 24 10:25 AM EDT documented as of this encounter Care Teams Entomology Teacher Relationship Specialty Start Date End Date Beckie Prakash MD [address] [place] [address] PCP - General Family Medicine 07/20/24 documented as of this encounter
== END 2025-01-25 16:33 | disposition home or self-care (01) ==
LOC: HO.HHCLNP 16:32
PROVIDERS: Visit Provider Family Medicine
DX: J38.7 Other diseases of larynx (principal)
CPT/HCPCS: 87255; 87491; 87591

== ENCOUNTER 2025-02-02 18:24 | Outpatient (REF) | payer MEDICAID, SELFPAY ==
--- OUTSIDE RECORDS SUMMARY | 2025-02-02 18:51 | XMS_ITS | Patient Health Record ---
Author Organization [facility] Address [address] [place] [phone] Care Team Providers Care Tube Sizer Operator Name Role Phone IWONA CHAMBERLAIN Unavailable [phone] Allergies Allergen (clinical drug ingredient) Drug/Non Drug [...] 10/01/2024 Encounters Encounter Location Date Provider Diagnosis [address] [phone] 10/01/2024 IWONA CHAMBERLAIN Encounter for scre ening [...] the visit Educating the patient New Patient: [id number] 15 Minutes 10/01/2024 Counseling, unspecified (ICD-10 - Z71.9) Spent 15 minutes doing the following: Chart Prep Obtaining/rev iewing history Performing medically necessary exam Counseling/Co ordination of Care Documenting the visit Educating the patient New Patient: [id number] 15 Minutes 10/01/2024 Other problems related to lifestyle (ICD-10 - Z72.89) Spent 15 minutes doing the following: Chart Prep Obtaining/rev iewing history Performing medically necessary exam Counseling/Co ordination of Care Documenting the visit Educating the patient New Patient: [id number] 15 Minutes Plan Of Treatment No Information Insurance Providers Payer Name Payer Address Payer Phone Subscriber Number Group Number Insured Name Patient Relationship to Insured Coverage Start Date Coverage End Date [place]S [address] [place] [id number] Duc Rangel Self - patient is the insured Medical (General) History Medical History History ICD Code syphilis, 06/2024 asthma
--- OUTSIDE RECORDS SUMMARY | 2025-02-02 18:51 | XMS_ITS | Encounter Summary ---
Author Organization [employer] Address [address] [place] [address] 7 [place] [address] Care Team Providers Care Sizing Machine Operator Name Role Phone Beckie Prakash MD Primary Care Provider [phone]- [phone] Reason for Visit * Reason Onset Date Comments Lab Orders 02/01/2025 Encounter Details Date Type Department Care Team ([facility] st Contact Info) Description 02/01/2025 Telephone [facility] [address] [place], [place] [phone] Beckie Prakash MD [address] [place], [place] [phone] Lab Orders Social History Tobacco Use Types [...] encounter Miscellaneous Notes * Telephone Encounter - Brianna Handy MD - 02/01/2025 4:46 PM EDT Called the patient and explained my error. Patient is willing to come back to the clinic tomorrow around 3 pm so that I can send a specimen again. * Telephone Encounter - Venita Guillory RN - 02/01/2025 2:54 PM EDT Received call from [facility] reporting the CT/NG RNA TMA Throat test could not be performed because both the cleaning swab and the specimen testing swab were found inside the specimen tube. The specimen is being rejected. For throat specimens, the cleaning swab should be discarded and not used. Message sent to ordering provider Dr. Handy. documented in this encounter Plan of Treatment Upcoming Encounters Date Type Department Care Team (Late st Contact Info) Description 02/28/2025 11:30 AM EDT Office Visit [facility] [address] [place] [address] Beckie Prakash MD [address] [place] [address] documented as of this encounter Visit Diagnoses Not on filedocumented in this encounter Additional Health Concerns Assessment Noted Time PHQ-9 Depression Total Score: 5 06/07/20 10:25 AM EDT documented as of this encounter Care Teams Sizing Machine Operator Relationship Specialty Start Date End Date Beckie Prakash MD [address] [place] [address] PCP - General Family Medicine 07/20/24 documented as of this encounter
--- OUTSIDE RECORDS SUMMARY | 2025-02-02 18:51 | XMS_ITS | Encounter Summary ---
Author Organization [employer] Address [address] [facility] 7t [place] [address] Care Team Providers Care Band Instrument Maker Name Role Phone Anabela Jalloh DO Primary Care Provider [phone] Beckie Prakash MD Primary Care Provider [phone] Encounter Details Date Type Department Care Team ([facility] st Contact Info) Description 07/14/2024 Orders Only [facility] [address] [place], [place] [phone] Beckie Prakash MD [address] [place], [place] [phone] Social History Tobacco Use Types Packs/Day Years [...] Description 02/28/2025 11:30 AM EDT Office Visit [facility] [address] [place] [address] [phone] Beckie Prakash MD [address] [place], [place] [phone] documented as of this encounter Procedures Procedure Name Priority Date/Time Associated Diagnosis Comments CHLAMYDIA/N. GONORRHOEAE RNA, TMA, THROAT Routine 01/25/2025 3:07 PM EST HERPES SIMPLEX VIRUS CULTURE Routine 01/25/2025 3:07 PM EST CONFIRMATORY SYPHILIS PROFILE Routine 11/08/2024 12:06 PM EST CHLAMYDIA/N. GONORRHOEAE RNA, TMA, THROAT Routine 11/08/2024 12:00 AM EST CONFIRMATORY SYPHILIS PROFILE Routine 07/14/2024 10:44 AM EDT OTHER REF TEST - MISC Routine 07/14/2024 10:44 AM EDT T-SPOT(R).TB Routine 07/13/2024 12:43 PM EDT documented in this encounter Results * Chlamydia/N. Gonorrhoeae RNA, TMA, Throat (01/25/2025 3:07 PM EST) C. Trachomatis RNA TMA, Throat TNP [facility] Comment:TEST NOT PERFORMEDNo suitable specimen received.Please review the testrequirements [email or web address] the blue collection swab and the white cleaning swab were submitted. Only the blue collection swab is acceptable for testing.THIS TEST WAS PERFORMED AT:[employer] [id number] [facility]ITALCHELITA BAK[facility] [place] [place] [address]JJXLMYAHAIRA BRANTLEY MD,PHD,ANDREW N. gonorrhoeae RNA TMA, Throat TNP [facility] 01/25/2025 3:07 PM EST 01/25/2025 4:34 PM EST Brianna Handy MD LAB MICROBIOLOGY - GENERAL ORDER HELENA Final Result Performing Organization Address [facility] Co de Phone Number [facility] [address] [place] [phone] * Herpes Simple Virus Culture (01/25/2025 3:07 PM EST) Herpes Virus Culture SEE NOTE [facility] Comment:HERPES SIMPLEX VIRUS CULTURE Micro Number: [id number] Test Status: Final Specimen Source: Not given Specimen Quality: Adequate HSV Culture: Not IsolatedTHIS TEST WAS PERFORMED AT:[employer] [address]QWWFLP MERATI,MD 01/25/2025 3:07 PM EST 01/25/2025 4:34 PM EST Brianna Handy MD LAB MICROBIOLOGY - GENERAL ORDER HELENA Final Result Performing Organization Address [facility] Co de Phone Number [facility] [address] [place] [phone] * (ABNORMAL) Confirmatory Syphilis Profile (11/08/2024 12:06 PM EST) Rapid Plasma Reagin, Quant Reactive 1:4(A) Nonreactive [facility] Treponema pallidum Antibody, Particle Agglutination Reactive(A) Nonreactive [facility] Comment:Testing performed at : [address] [address] 11/08/2024 12:0 6 PM EST 11/08/2024 2:30 PM EST Beckie Prakash MD LAB BLOOD ORDERABLES Final Result Performing Organization Address [facility]/ZIP Co de Phone Number [facility] [address] [place] [phone] * Chlamydia/N. Gonorrhoeae RNA, TMA, Throat (11/08/2024 12:00 AM EST) C. Trachomatis RNA TMA, Throat NOT DETECTED [facility] N. gonorrhoeae RNA TMA, Throat NOT DETECTED [facility] Comment:REFERENCE RANGE: NOT DETECTEDMethodology: [employer] Mediated Amplification (TMA) to detect RNA.The analytical performance characteristics of this assayhave been determined by [employer]. The modificationshave not been cleared or approved by the FDA. This assay hasbeen validated pursuant to the CLIA regulations and is usedfor clinical purposes.For additional information, please refer tohttps://education.Shsunedu.com.[employer]evigo/faq/GFH165(This link is being provided for informational/educationalpurposes only.)THIS TEST WAS PERFORMED AT:[employer] [id number] [place] [address]LRKBFYAHAIRA BRANTLEY MD,PHD,ANDREW 11/08/2024 11/08/2024 Beckie Prakash MD LAB MICROBIOLOGY - GENERAL ORDERABLES Final Result Performing Organization Address [facility]/ZIP Co de Phone Number [facility] [address] [place] [phone] * Other Reference Test - Misc (07/14/2024 10:44 AM EDT) 07/14/2024 10:4 4 AM EDT 07/14/2024 11:36 AM EDT Narrative [facility] - 07/19/2024 11:06 AM EDT Bartonella Species Antibodies (IgG, IgM) with Reflex to [place] Beckie Prakash MD LAB BLOOD ORDERABLES Final Result Performing Organization Address [facility] de Phone Number [facility] [address] [place] [phone] * (ABNORMAL) Confirmatory Syphilis Profile (07/14/2024 10:44 AM EDT) [facility] Rapid Plasma Reagin, Quant Reactive 1:4096 Nonreactive [facility] Treponema pallidum Antibody, Particle Agglutination Reactive(A) Nonreactive [facility] Comment:Testing performed at : [address] [address] 07/14/2024 10:4 4 AM EDT 07/14/2024 1:00 PM EDT Beckie Prakash MD LAB BLOOD ORDERABLES Final Result Performing Organization Address [facility] de Phone Number [facility] [address] [place] [phone] * T-SPOT??.TB (07/13/2024 12:43 PM EDT) Pathologist [facility] T Spot TB Negative Negative [facility] Comment:A negative test resu lt [...] as aquantitative test. TS PANEL A 0 [facility] TS PANEL B 0 [facility] Negative Control Passed [facility] Positive Control Passed [facility] Comment:For additional infor mation, please refer tohttp://education.[employer]/faq/FFB865(This link is being provided for informational/educational purposes only.)THIS TEST WAS PERFORMED AT:[employer] [id number] [place] [address]XZKEAJMNAT GRAHAM MD,PHD 07/13/2024 12:4 3 PM EDT 07/13/2024 1:31 PM EDT Anabela Jalloh DO LAB BLOOD ORDERABLES Final Re sult [facility] [address] [place] [phone] documented in this encounter Visit Diagnoses Not on filedocumented in this encounter Additional Health Concerns Assessment Noted Time PHQ-9 Depression Total Score: 5 06/07/20 24 10:25 AM EDT documented as of this encounter Care Teams Band Instrument Maker Relationship Specialty Start Date End Date Anabela Jalloh DO [address] [place] [address] PCP - General Pediatrics 10/11/14 07/19/24 Beckie Prakash MD [address] [place] [address] PCP - General Family Medicine 07/20/24 documented as of this encounter
--- OUTSIDE RECORDS SUMMARY | 2025-02-02 18:51 | XMS_ITS | Encounter Summary ---
Author Organization [employer] Address [address] [facility] 7t [place] [address] Care Team Providers Care Physical Therapy Aides Teacher Name Role Phone Beckie Prakash MD Primary Care Provider [phone]- [phone] Encounter Details Date Type Department Care Team (Late st Contact Info) Description 01/27/2025 Orders Only [facility] [address] [place] [address] Dejah Beal RN Social History Tobacco Use Types Packs/Day Years [...] Description 02/28/2025 11:30 AM EDT Office Visit [facility] [address] [place], [place] [phone] Beckie Prakash MD [address] [place] [address] documented as of this encounter Procedures Procedure Name Priority Date/Time Associated Diagnosis Comments CHLAMYDIA/GONORRHEA RECTAL SWAB ([place]) Routine 01/20/2025 CHLAMYDIA/GONORRHEA THROAT SWAB ([place] D[facility]) Routine 01/20/2025 CHLAMYDIA/GONORRHEA - URINE ([place] D[facility]) Routine 01/20/2025 SYPHILIS ABS ([place] D[facility]) Routine 01/20/2025 HEPATITIS C ANTIBODY ([place] D[facility]) Routine 01/20/2025 HIV ANTIBODY/ANTIGEN ([place]) Routine 01/20/2025 documented in this encounter Results * HIV Ab/Ag ([place] D[facility]) (01/20/2025) HIV Ag/Ab Nonreactive Blood 01/20/2025 Historical Provider LAB BLOOD ORDERABLES Edit ed Result - Final * Hepatitis C Antibody ([place] D[facility]) (01/20/2025) Hepatitis C Ab Nonreactive Blood 01/20/2025 Result [facility] LAB BLOOD ORDERABLES Edit ed Result - Final * (ABNORMAL) Syphilis Antibodies (DPH) (01/20/2025) Syphilis Abs Reactive( A) Borderline, Nonreactive, Weakly Reactive, Inconclusive, Specimen unsatisfactory for evaluation Blood Venous blood specimen / Unknown 01/20/2025 Result [facility] LAB BLOOD ORDERABLES Edit ed Result - Final * Chlamydia/Gonorrhea Throat Swab ([place] DPH) (01/20/2025) Chlamydia Throat Swab Negative Gonorrhea Throat Swab Negative Swab 01/20/2025 Result [facility] LAB MICROBIOLOGY - GENERA L ORDERABLES Edited Result - Final * Chlamydia/Gonorrhea, Rectal Swab ([place] DPH) (01/20/2025) Pathologist [facility] Chlamydia Rectal Swab Negative Negative, Indeterminate, None Detected, Invalid, Specimen unsatisfactory for evaluation Gonorrhea Rectal Swab Negative Negative, Indeterminate, None Detected, Invalid, Specimen unsatisfactory for evaluation Swab 01/20/2025 Result [facility] LAB MICROBIOLOGY - GENERA L ORDERABLES Edited Result - Final * Chlamydia/Gonorrhea, Urine ([place] DPH) (01/20/2025) Chlamydia, Urine Negative Negative, Indeterminate, None Detected, Invalid, Specimen unsatisfactory for evaluation, Weakly Positive Gonorrhea, Urine Negative Negative, Indeterminate, None Detected, Invalid, Specimen unsatisfactory for evaluation, Weakly Positive Urine 01/20/2025 Result [facility] LAB URINE ORDERABLES Edit ed Result - Final documented in this encounter Visit Diagnoses Not on filedocumented in this encounter Additional Health Concerns Assessment Noted Time PHQ-9 Depression Total Score: 5 06/07/20 24 10:25 AM EDT documented as of this encounter Care Teams Physical Therapy Aides Teacher Relationship Specialty Start Date End Date Beckie Prakash MD [address] [place] [address] PCP - General Family Medicine 07/20/24 documented as of this encounter
--- OUTSIDE RECORDS SUMMARY | 2025-02-02 18:51 | XMS_ITS | Clinical Summary ---
Author Organization [employer] Address [address] [place] [address] 7t [place] [address] Care Team Providers Care Swamper Name Role Phone Beckie Prakash MD Primary Care Provider +1- [phone] Allergies No known active allergies Medications ketotifen [...] Active Problems Problem Noted Date Diagnosed Date Oral ulcer 02/02/2025 Routine screening for STI (sexually transmitted infection) [...] [place] the nearby mall. -dental home is [facility]. -chris care proxy 08/13/24 Assessment & Plan (08/13/2024 10:46 AM EDT): -next comprehensive annual evaluation due after 08/13/25 -eye care facilitated by place at the nearby mall. -dental home is [facility]. 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 Overview (02/01/2025): State lab Syphilis AB CMIA reactiove with RPR 1:1 01/20/25 with HIV , GC, Chl negative (scanned in chart under media) Resolved Problems Problem Noted Date Diagnosed Date Resolved Date Acute COVID-19 06/07/2024 11/08/2024 Encounters Date Type Department Care Team Description 02/02/2025 Orders Only [address] [address] Brianna Handy MD Oral ulcer (Primary Dx); Throat ulcer 02/01/2025 Telephone [facility] [address] Beckie Prakash MD Lab Orders 01/27/2025 Orders Only [address] [address] Dejah Beal RN 01/25/2025 2:15 PM EST Office Visit [facility] [address] Brianna Handy MD Throat ulcer (Primary Dx); Sore throat 01/25/2025 Travel 01/25/2025 Telephone [facility] [place] [address] Beckie Prakash MD 11/08/2024 11:00 AM EST Office Visit [facility] [place] [address] Beckie Parkash MD Routine screening for STI (sexually transmitted [...] Description 02/28/2025 11:30 AM EDT Office Visit [facility] [address] [place] [address] Beckie Prakash MD [address] [place] [address] Health Maintenance Due Date Last Done Comments Alcohol/Substance Use Screening 2016 Depression Screening 06/07/2025 06/07/2024, 06/07/20 SDOH Screening 06/07/2025 06/07/2024 DTaP/Tdap/Td Vaccines (7 - Td or Tdap) 06/30/2025 06/30/2015, 07/11/2008, 12/18/2005, Additional history exists Family Planning (PISQ) 11/08/2025 11/08/2024 Chlamydia and Gonorrhea Screening 01/25/2026 01/25/2025, 01/20/2025, 01/20/2025, Additional history exists Tobacco Screening 01/25/2026 01/25/2025 Zoster Vaccines (1 [...] 12/25/2012, 09/14/20 10 HPV Vaccines Completed 08/09/2016, 04/2015, 06/30/2015 Meningococcal Vaccine Completed 02/14/2021, 015 COVID-19 Vaccine Completed 08/13/2024, , 06/15/2021 Influenza Vaccine Completed 08/13/2024, , 02/04/2022, Additional history exists HIV Screening Completed 01/20/2025, 07/14/2024 Hepatitis C Screening Completed 01/20/2025, 024 RSV under 20 months Aged Out No longe r eligible based on patient's age to complete this topic Rotavirus Vaccines Aged Out No longer eligible based on patient's age to complete this topic Procedures Procedure Name Priority Date/Time Associated Diagnosis Comments CHLAMYDIA/N. GONORRHOEAE RNA, TMA, THROAT Routine 01/25/2025 3:07 PM EST HERPES SIMPLEX VIRUS CULTURE Routine 01/25/2025 3:07 PM EST POCT COVID-19 AG LONG ID NOW Routine 01/25/2025 2:49 PM EST Sore throat POC LONG ID NOW STREP A Routine 01/25/2025 2:48 PM EST Sore throat HIV ANTIBODY/ANTIGEN ([place] DPH) Routine 01/20/2025 HEPATITIS C ANTIBODY ([place] DPH) Routine 01/20/2025 SYPHILIS ABS ([place] DPH) Routine 01/20/2025 CHLAMYDIA/GONORRHEA - URINE ([place] DPH) Routine 01/20/2025 CHLAMYDIA/GONORRHEA THROAT SWAB ([place] DPH) Routine 01/20/2025 CHLAMYDIA/GONORRHEA RECTAL SWAB ([place] DPH) Routine 01/20/2025 CHLAMYDIA/N. GONORRHOEAE RNA, TMA, THROAT Routine 01/20/2025 Throat ulcer HERPES CULTURE WITH REFLEX TYPING Routine 01/20/2025 Throat ulcer CONFIRMATORY SYPHILIS PROFILE Routine 11/08/2024 12:06 PM EST SYPHILIS SCREEN Routine 11/08/2024 12:06 PM EST Routine screening for STI (sexually transmitted infection) CHLAMYDIA/N. GONORRHOEAE RNA, TMA, THROAT Routine 11/08/2024 12:00 AM EST from Last 3 Months Results * Chlamydia/N. Gonorrhoeae RNA, TMA, Throat (01/25/2025 3:07 PM EST) Only the most recent of3 resultswithin the time period is included. C. Trachomatis RNA TMA, Throat TNP [facility] Comment:TEST NOT PERFORMEDNo suitable specimen received.Please review the testrequirements [email or web address] the blue collection swab and the white cleaning swab were submitted. Only the blue collection swab is acceptable for testing.THIS TEST WAS PERFORMED AT:[employer] [id number] [place] [address]AJFIOYAHAIRA BRANTLEY MD,PHD,ANDREW N. gonorrhoeae RNA TMA, Throat TNP [facility] 01/25/2025 3:07 PM EST 01/25/2025 4:34 PM EST Brianna Handy MD LAB MICROBIOLOGY - GENERAL ORDER HELENA Final Result Performing Organization Address City/[facility]/ZIP Co de Phone Number [facility] [address] [place] [phone] * Herpes Simple Virus Culture (01/25/2025 3:07 PM EST) Herpes Virus Culture SEE NOTE [facility] Comment:HERPES SIMPLEX VIRUS CULTURE Micro Number: [id number] Test Status: Final Specimen Source: Not given Specimen Quality: Adequate HSV Culture: Not IsolatedTHIS TEST WAS PERFORMED AT:[employer] [address]OHUIPW MERATI,MD 01/25/2025 3:07 PM EST 01/25/2025 4:34 PM EST Brianna Handy MD LAB MICROBIOLOGY - GENERAL ORDER HELENA Final Result [facility] [address] [place] [phone] * POCT Rapid Covid-19 LONG ID NOW (01/25/2025 2:49 PM EST) Coronavirus Antigen PCR Negative Negative, Indeterminate, None Detected, Invalid, Specimen unsatisfactory for evaluation, Weakly Positive QC Media Lot # [id number] Lot# Expiration Date 3,026 Swab 01/25/2025 2:49 PM EST Brianna Handy MD POINT OF CARE TEST ENTER/EDIT OR DERABLES Edited Result - Final * POCT Rapid Strep A LONG ID NOW (01/25/2025 2:48 PM EST) Pathologist [facility] Rapid Strep A Screen Negative Negative, None Detected QC Media Lot # [id number] Lot# Expiration Date 4,026 Swab 01/25/2025 2:48 PM EST Brianna Handy MD POINT OF CARE TEST ENTER/EDIT OR DERABLES Final Result * Chlamydia/Gonorrhea, Rectal Swab ([place] DPH) (01/20/2025) Pathologist [facility] Chlamydia Rectal Swab Negative Negative, Indeterminate, None Detected, Invalid, Specimen unsatisfactory for evaluation Gonorrhea Rectal Swab Negative Negative, Indeterminate, None Detected, Invalid, Specimen unsatisfactory for evaluation Swab 01/20/2025 Historical Provider LAB MICROBIOLOGY - GENERA L ORDERABLES Edited Result - Final * Chlamydia/Gonorrhea Throat Swab ([place] DPH) (01/20/2025) Chlamydia Throat Swab Negative Gonorrhea Throat Swab Negative Swab 01/20/2025 Historical Provider LAB MICROBIOLOGY - GENERA L ORDERABLES Edited Result - Final * Chlamydia/Gonorrhea, Urine ([place] DPH) (01/20/2025) [facility] Chlamydia, Urine Negative Negative, Indeterminate, None Detected, Invalid, Specimen unsatisfactory for evaluation, Weakly Positive Gonorrhea, Urine Negative Negative, Indeterminate, None Detected, Invalid, Specimen unsatisfactory for evaluation, Weakly Positive Urine 01/20/2025 Result [facility] Provider MD LAB URINE ORDERABLES Edit ed Result - Final * (ABNORMAL) Syphilis Antibodies (DPH) (01/20/2025) [facility] Syphilis Abs Reactive( A) Borderline, Nonreactive, Weakly Reactive, Inconclusive, Specimen unsatisfactory for evaluation Blood Venous blood specimen / Unknown 01/20/2025 Result [facility] Provider LAB BLOOD ORDERABLES Edit ed Result - Final * Hepatitis C Antibody ([facility]) (01/20/2025) [facility] Hepatitis C Ab Nonreactive Blood 01/20/2025 Result [facility] Provider LAB BLOOD ORDERABLES Edit ed Result - Final * HIV Ab/Ag ([facility]) (01/20/2025) [facility] HIV Ag/Ab Nonreactive Blood 01/20/2025 Result [facility] Provider LAB BLOOD ORDERABLES Edit ed Result - Final * Herpes Simplex Virus Culture with Reflex Typing (01/20/2025) Swab Structure of anterior portion of neck / Unknown 01/20/2025 Result [facility] Brianna Handy MD LAB MICROBIOLOGY - GENERAL ORDER HELENA Final Result [facility] [address] [place] [phone] * (ABNORMAL) Confirmatory Syphilis Profile (11/08/2024 12:06 PM EST) [facility] Rapid Plasma Reagin, Quant Reactive 1:4(A) Nonreactive [facility] Treponema pallidum Antibody, Particle Agglutination Reactive(A) Nonreactive [facility] Comment:Testing performed at : [address] [address] 11/08/2024 12:0 6 PM EST 11/08/2024 2:30 PM EST Beckie Prakash MD LAB BLOOD ORDERABLES Final Result Performing Organization Address [facility] Co de Phone Number [facility] [address] [place] [phone] * (ABNORMAL) Syphilis Screen (11/08/2024 12:06 PM EST) Pathologist [facility] Syphilis Screen Reactive( A) Nonreactive [facility] Comment:Reactive specimens a re sent to the [facility] Labfor confirmatory tests. Blood Venous blood specimen / Unknown 11/08/2024 12:06 PM EST 11/08/2024 1:23 PM EST Beckie Prakash MD LAB BLOOD ORDERABLES Final Result Performing Organization Address [facility] Co de Phone Number [facility] [address] [place] [phone] from Last 3 Months Insurance [facility] C3 Advance Directives Documents on File Type Date Recorded Patient Aquatic Facility Manager Expl anation Advance Directives and Living Will 08/13/2024 Health Care Proxy 08/13/24 Care Teams Swamper Relationship Specialty Start Date End Date Lares, MD Beckie [address] [place] [phone] PCP - General Family Medicine 07/20/24
--- OUTSIDE RECORDS SUMMARY | 2025-02-02 18:51 | XMS_ITS | Encounter Summary ---
Author Organization [employer] Address [address] [place] [address] 7t [place] [address] Care Team Providers Care Deputy Prosecuting Attorney Name Role Phone Beckie Prakash MD Primary Care Provider [phone]- [phone] Encounter Details Date Type Department Care Team ([facility] st Contact Info) Description 02/02/2025 Orders Only [facility] [address] [place] [address] Brianna Handy MD [address] [place] [address] Oral ulcer (Primary Dx); Throat ulcer Social History Tobacco Use Types Packs/Day Years [...] Description 02/28/2025 11:30 AM EDT Office Visit [facility] [address] [place] [address] Beckie Prakash MD [address] [place] [address] Scheduled Orders Name Type Priority Associated Diagnoses Orde r Schedule Herpes Simplex Virus Culture with Reflex Typing Microbiology Routine Oral ulcer Throat ulcer Expected: 02/02/2025, Expires: 02/02/2026 Chlamydia/N. Gonorrhoeae RNA, TMA, Throat Microbiology Routine Oral ulcer Throat ulcer Expected: 02/02/2025 (Approximate), Expires: 02/02/2026 documented as of this encounter Visit Diagnoses Diagnosis Oral ulcer- Primary Other and unspecified diseases of the oral soft tissues Throat ulcer Other diseases of larynx documented in this encounter Additional Health Concerns Assessment Noted Time PHQ-9 Depression Total Score: 5 06/07/20 24 10:25 AM EDT documented as of this encounter Care Teams Deputy Prosecuting Attorney Relationship Specialty Start Date End Date Beckie Prakash MD [address] [place] [phone] PCP - General Family Medicine 07/20/24 documented as of this encounter
--- OUTSIDE RECORDS SUMMARY | 2025-02-02 18:51 | XMS_ITS ---
Author Organization [facility] Address [address] [place] [id number] Care Team Providers Care Mechanical Unit Repairer Name Role Phone CINTIA IWONA Unavailable [phone] Allergies Allergen (clinical drug ingredient) Drug/Non Drug [...] 10/01/2024 Encounters Encounter Location Date Provider Diagnosis [address] [id number] 10/01/2024 IWONA CHAMBERLAIN Encounter for scre ening [...] the visit Educating the patient New Patient: 44824 15 Minutes 10/01/2024 Counseling, unspecified (ICD-10 - Z71.9) Spent 15 minutes doing the following: Chart Prep Obtaining/rev iewing history Performing medically necessary exam Counseling/Co ordination of Care Documenting the visit Educating the patient New Patient: 30234 15 Minutes 10/01/2024 Other problems related to lifestyle (ICD-10 - Z72.89) Spent 15 minutes doing the following: Chart Prep Obtaining/rev iewing history Performing medically necessary exam Counseling/Co ordination of Care Documenting the visit Educating the patient New Patient: 77363 15 Minutes Plan Of Treatment Treatment Notes [...] * Angel RANGEL:0 2005 (19 yo M)Acc No.[id number]:10/01/2024 Progress Notes Patient:?Clint RANGEL Provider:ANN CHAMBERLAIN :2005???Age:19 Y???Sex:Male Emanuel e:10/01/2024 Address:[address] [place], [place] [id number] Subjective: * Chief Complaints: * ???Counseling/Testing * [...] Notes for the Clinician:?clt was seen in [facility], and got tested. clt was told [...] the visit Educating the patient New Patient: 15416 15 Minutes Plan: * Treatment: * Procedure Codes:? * Follow Up:?prn * Billing Information: * Visit Code:? [id number] New-Straightforward (IN USE). * Procedure Codes:? * Sign off status: Completed true * Provider:ANN CHAMBERLAIN Date:?10/01/2024 Generated for Yao uriostegui/Mckenna/Araitting on:?02/02/2025 06:51 PM EDT History and Physical Notes * HPI (History of Present Illness) Category Sub-Category Detail Notes Category Not es Visit Narrative Reason for the visit: hsv testing Current form of control: condoms s ometimes Presenting Symptoms: had bump on lip Other Notes for the Clinician: clt was s een in [facility], and got tested. clt was told [...] in no acute di stress PSYCH: alert, oriented"
--- OUTSIDE RECORDS SUMMARY | 2025-02-02 18:51 | XMS_ITS | Encounter Summary ---
Author Organization [employer] Address [address] [place] [address] 7t [place] [address] Care Team Providers Care Evaluation Specialist Name Role Phone Beckie Prakash MD Primary Care Provider +1- [phone] Encounter Details Date Type Department Care Team ([facility] st Contact Info) Description 01/25/2025 Telephone [facility] MED[facility]INE [address] [place] [address] Beckie Prakash MD [address] [place] [address] Social History Tobacco Use Types Packs/Day Years [...] states in the back parking lot at [facility] but, I do not see any testing [...] Description 02/28/2025 11:30 AM EDT Office Visit [facility]INE [address] [place] [address] Beckie Prakash MD [address] [place] [address] documented as of this encounter Visit Diagnoses Not on filedocumented in this encounter Additional Health Concerns Assessment Noted Time PHQ-9 Depression Total Score: 5 06/07/20 24 10:25 AM EDT documented as of this encounter Care Teams Evaluation Specialist Relationship Specialty Start Date End Date Beckie Prakash MD [address] [place] [address] PCP - General Family Medicine 07/20/24 documented as of this encounter
--- OUTSIDE RECORDS SUMMARY | 2025-02-02 18:51 | XMS_ITS | Encounter Summary ---
Author Organization [employer] Address [address] [place] [address] [address] [place] [address] Care Team Providers Care Mental Health Clinician Name Role Phone Beckie Prakash MD Primary Care Provider +1- [phone] Encounter Details Date Type Department Care Team (Late st Contact Info) Description 01/25/2025 2:15 PM EST Office Visit [facility] [address] [place] [address] Brianna Handy MD [address] [place] [address] Throat ulcer (Primary Dx); Sore throat Social [...] 2:33 PM EST documented in this encounter Progress Notes * Brianna Handy MD - 01/25/2025 2:15 PM EST Subjective Duc Butler is a 19 y.o. male who has history of syphilis, and patient presents for [facility]. Background: Patient Active Problem List Diagnosis Linear scleroderma Acne vulgaris Environmental allergies Developmental academic disorder Lymphadenopathy of left cervical region History of syphilis Other specified health status Routine screening for STI (sexually transmitted infection) Seasonal allergies Last PCP visit in Oct 2024. Right anterior cervical lymphadenopathy. S/p treatment for syphilis in Jun - Jul 2024. RPR titer 1:4 on 11/08/24. GC/Chlam throat culture was negative. Today: Pt reports he has had a sore throat and cold sores since . Pt notes he???s had one new partner since June and denies using protection. Pt was tested for STI???s recently and all tests came back negative. Pt denies ever having Herpes and denies having any other blister. Pt denies painful urination or discharge from penis. Pt agrees to Herpes testing, but he declines medication for herpesbefore getting tested. Pt denies difficulty breathing or having a fever but he does have trouble swallowing. Pt declines aPreP prescription because he hasn???t had a sexual partner since his last. Pt denies using mouth wash but he uses Hydrogen peroxide. Review of Systems Constitutional: Negative for activity change, appetite change and fever. Respiratory: Negative for shortness of breath. Cardiovascular: Negative for chest pain. Objective Vitals: 01/25/25 1433 BP: 125/81 BP Location: Right arm Patient Position: Sitting BP Cuff Size: Adult Pulse: 88 Resp: 18 Temp: 97.5 ??F (36.4 ??C) TempSrc: Temporal SpO2: 96% Weight: 135 lb (61.2 kg) Height: 5' 8 (1.727 m) Physical Exam Constitutional: General: He is not in acute distress. Appearance: Normal appearance. He is not ill-appearing. HENT: Head: Normocephalic and atraumatic. Mouth/Throat: Mouth: Mucous membranes are moist. Eyes: Extraocular Movements: Extraocular movements intact. Pupils: Pupils are equal, round, and reactive to light. Cardiovascular: Rate and Rhythm: Normal rate and regular rhythm. Heart sounds: No murmur heard. Pulmonary: Effort: Pulmonary effort is normal. No respiratory distress. Breath sounds: Normal breath sounds. No wheezing or rhonchi. Skin: General: Skin is warm. Neurological: Mental Status: He is alert. Mental status is at baseline. Psychiatric: Mood and Affect: Mood normal. Results: Strep and COVID negative. Assessment/Plan Problem List Items Addressed This Visit None Visit Diagnoses Throat ulcer - Primary - Pt states his STI test were all negative yesterday - will send HSV test and throat swab - consider evaluation by ENT if persists for HPV concern Relevant Orders Herpes Simplex Virus Culture with Reflex Typing (Completed) Chlamydia/N. Gonorrhoeae RNA, TMA, Throat (Completed) Sore throat Relevant Orders POCT Rapid Strep A LONG ID NOW (Completed) POCT Rapid Covid-19 LONG ID NOW (Completed) No Known Allergies Current Outpatient Medications Medication Instructions cetirizine (ZyrTEC) 10 MG tablet TAKE 1 TABLET BY MOUTH EVERY DAY fluticasone (Flonase Allergy Relief) 50 MCG/ACT nasal spray 1 spray, Each Nostril, Daily PRN, Shakegently. Before first use, prime pump. After use, clean tip and replace cap. ketotifen (Alaway) 0.025 % ophthalmic solution 1 drop each eye BID as needed for itchy eyes Follow-up: 2 weeks or sooner if any problem arises. Scribe Attestation: IVani, am serving as a scribe to document services personally performed by Brianna Handy MD, based on the patient's response to questions by provider and provides statements to me. documented in this encounter Plan of Treatment Upcoming Encounters Date Type Department Care Team (Late st Contact Info) Description 02/28/2025 11:30 AM EDT Office Visit [facility] [address] [place] [address] Beckie Prakash MD [address] [place] [address] documented as of this encounter Procedures Procedure Name Priority Date/Time Associated Diagnosis Comments POCT COVID-19 AG LONG ID NOW Routine 01/25/2025 2:49 PM EST Sore throat POC LONG ID NOW STREP A Routine 01/25/2025 2:48 PM EST Sore throat HERPES CULTURE WITH REFLEX TYPING Routine 01/20/2025 Throat ulcer CHLAMYDIA/N. GONORRHOEAE RNA, TMA, THROAT Routine 01/20/2025 Throat ulcer documented in this encounter Results * POCT Rapid Covid-19 LONG ID NOW (01/25/2025 2:49 PM EST) Coronavirus Antigen PCR Negative Negative, Indeterminate, None Detected, Invalid, Specimen unsatisfactory for evaluation, Weakly Positive QC Media Lot # [id number] Lot# Expiration Date 3026 Swab 01/25/2025 2:49 PM EST Brianna Handy MD POINT OF CARE TEST ENTER/EDIT OR DERABLES Edited Result - Final * POCT Rapid Strep A LONG ID NOW (01/25/2025 2:48 PM EST) [facility] Rapid Strep A Screen Negative Negative, None Detected QC Media Lot # [id number] Lot# Expiration Date ,026 Swab 01/25/2025 2:48 PM EST Brianna Handy MD POINT OF CARE TEST ENTER/EDIT OR DERABLES Final Result * Chlamydia/N. Gonorrhoeae RNA, TMA, Throat (01/20/2025) Swab Throat swab / Unknown 01/20/2025 Brianna Handy MD LAB MICROBIOLOGY - GENERAL ORDER HELEAN Final Result Performing Organization Address [facility] [[email or web address]] Co de Phone Number [facility] [address] [place] [phone] * Herpes Simplex Virus Culture with Reflex Typing (01/20/2025) Swab Structure of anterior portion of neck / Unknown 01/20/2025 Brianna Handy MD LAB MICROBIOLOGY - GENERAL ORDER HELENA Final Result Performing Organization Address [facility]/ZIP Co de Phone Number [facility] [address] [place] [phone] documented in this encounter Visit Diagnoses Diagnosis Throat ulcer- Primary Other diseases of larynx Sore throat Acute pharyngitis documented in this encounter Additional Health Concerns Assessment Noted Time PHQ-9 Depression Total Score: 5 06/07/ 24 10:25 AM EDT documented as of this encounter Care Teams Mental Health Clinician Relationship Specialty Start Date End Date Beckie Prakash MD [address] [place] [address] PCP - General Family Medicine 07/20/24 documented as of this encounter
--- OUTSIDE RECORDS SUMMARY | 2025-02-02 18:52 | XMS_ITS | Encounter Summary ---
Author Organization [employer] Address [address] [place] [address] 7t [place] [address] Care Team Providers Care Police [employer] Program Coordinator Name Role Phone Beckie Prakash MD Primary Care Provider [phone]- [phone] Encounter Details Date Type Department Care Team [...] Description 02/28/2025 11:30 AM EDT Office Visit [facility] [address] [place] [address] Beckie Prakash MD [address] [place] [address] documented as of this encounter Visit Diagnoses Not on filedocumented in this encounter Additional Health Concerns Assessment Noted Time PHQ-9 Depression Total Score: 5 06/07/20 24 10:25 AM EDT documented as of this encounter Care Teams [employer] Program Coordinator Relationship Specialty Start Date End Date Beckie Prakash MD [address] [place] [address] PCP - General Family Medicine 07/20/24 documented as of this encounter
--- OUTSIDE RECORDS SUMMARY | 2025-02-02 18:52 | XMS_ITS | Encounter Summary ---
Author Organization [employer] Address [address] [place] [address] 7 [place] [address] Care Team Providers Care Hearing Aid Assistant Name Role Phone Anabela Jalloh DO Primary Care Provider [phone] Beckie Prakash MD Primary Care Provider [phone]- [phone] Reason for Visit * Reason Onset Date Comments Lab Orders 01/21/2024 Encounter Details Date Type Department Care Team (Late st Contact Info) Description 01/21/2024 Telephone [facility] [address] [place] [address] Anabela Jalloh DO [address] [place] [address] Lab Orders Social History Tobacco Use Types [...] with others, in a hotel, in a retirement, living outside on the street, on a [...] done before Friday. Please contact mom at [phone]. documented in this encounter Plan of Treatment Upcoming Encounters Date Type Department Care Team (Late st Contact Info) Description 02/28/2025 11:30 AM EDT Office Visit [facility] [address] [place] [address] Beckie Prakash MD [address] [place] [address] documented as of this encounter Visit Diagnoses Not on filedocumented in this encounter Additional Health Concerns Assessment Noted Time PHQ-9 Depression Total Score: 8 06/11/20 23 6:23 PM EDT documented as of this encounter Care Teams Hearing Aid Assistant Relationship Specialty Start Date End Date Anabela Jalloh DO [address] [place] [address] PCP - General Pediatrics 10/11/14 07/19/24 Beckie Prakash MD [address] [place] [address] PCP - General Family Medicine 07/20/24 documented as of this encounter
[2025-02-05 11:38] LABS: C. Trachomatis RNA TMA, Throat NOT DETECTED; N. gonorrhoeae RNA TMA, Throat NOT DETECTED
== END 2025-02-02 18:25 | disposition home or self-care (01) ==
LOC: HO.HHCLNP 18:24
PROVIDERS: Visit Provider Family Medicine
DX: K12.1 Other forms of stomatitis (principal); J38.7 Other diseases of larynx
CPT/HCPCS: 87255; 87491; 87591

== ENCOUNTER 2025-02-14 09:53 | Outpatient (REF) | payer MEDICAID, SELFPAY ==
[2025-02-16 14:28] LABS: RPR Rapid Plasma Reagin REACTIVE (NON-REACTIVE)
== END 2025-02-14 09:54 | disposition home or self-care (01) ==
LOC: HO.HHCL 09:53
PROVIDERS: Visit Provider Emergency Medicine
DX: R21 Rash and other nonspecific skin eruption (principal)
CPT/HCPCS: 36415; 86592; 86593